=== PATIENT | male | born 1960 | race Caucasian/White ===

== ENCOUNTER → 2024-01-27 06:21 | Day surgery (SDC) | payer MEDICARE, BC, SELFPAY | LOC: GI 06:21 | PROVIDERS: ATTENDING PHYSICIAN Specialist; FAMILY PHYSICIAN Family Medicine | DX: Z12.11 Encounter for screening for malignant neoplasm of colon (principal); K57.30 Diverticulosis of large intestine without perforation or abscess without bleeding; D12.2 Benign neoplasm of ascending colon; D12.3 Benign neoplasm of transverse colon; Z86.010 Personal history of colon polyps | CPT/HCPCS: 45380; 88305 ==